=== PATIENT | male | born 1985 ===

== ENCOUNTER 2016-05-05 13:25 | Emergency (ER) | payer BC, MEDICAID ==
[2016-05-05 15:16] VITALS: BP 143/85
--- NOTE | 2016-05-05 17:02 | UC ---
Throat Pain/Nasal Aravind HPI - HPI Summary HPI Summary: FOUR DAYS OF SORE THROAT, COLD SWEATS, COUGH. FELT FEVERISH, BUT NO THERMOMETER - History of Current Complaint Chief Complaint: UCGeneralIllness Stated Complaint: SORE THROAT Time Seen by Provider: 05/05/16 15:37 Hx Obtained From: Patient Onset/Duration: Gradual Onset, Lasting Days, Still Present Severity: Mild Pain Intensity: 2 Pain Scale Used: 0-10 Numeric Cough: Nonproductive Associated Signs & Symptoms: Positive: Hoarseness, Sinus Discomfort, Fever - Allergies/Home Medications Allergies/Adverse Reactions: Allergies Allergy/AdvReac Type Severity Reaction Status Date / Time No Known Allergies Allergy Verified 01/13/15 10:59 PMH/Surg Hx/FS Hx/Imm Hx Previously Healthy: Yes Endocrine History Of: Denies: Diabetes, Thyroid Disease Cardiovascular History Of: Denies: Cardiac Disorders, Hypertension Respiratory History Of: Denies: COPD, Asthma GI/ History Of: Denies: Ulcer - Surgical History Surgical History: None - Family History Known Family History: Negative: Respiratory Disease - Social History Occupation: Employed Full-time Lives: With Family Alcohol Use: Daily Alcohol Amount: 2 BEERS A DAY Substance Use Type: None Smoking Status (MU): Never Smoked Tobacco Review of Systems Constitutional: Fever, Chills, Fatigue Skin: Negative Eyes: Negative ENT: Sore Throat, Ear Ache Respiratory: Cough Cardiovascular: Negative Gastrointestinal: Negative Genitourinary: Negative Motor: Negative Neurovascular: Negative Musculoskeletal: Negative Neurological: Negative Psychological: Negative All Other Systems Reviewed And Are Negative: Yes Physical Exam Triage Information Reviewed: Yes Appearance: Well-Appearing, No Pain Distress, Well-Nourished Vital Signs: Initial Vital Signs Temp 98.1 F 05/05/16 15:11 Pulse 74 05/05/16 15:11 Resp 16 05/05/16 15:11 BP 143/85 05/05/16 15:11 Pulse Ox 98 05/05/16 15:11 Vital Signs Reviewed: Yes Eye Exam: Normal ENT Exam: Normal ENT: Positive: Normal ENT inspection, Hearing grossly normal, Pharyngeal erythema, TMs normal, Tonsillar exudate Dental Exam: Normal Neck exam: Normal Neck: Positive: Supple, Nontender, No Lymphadenopathy Respiratory Exam: Normal Respiratory: Positive: Chest non-tender, Lungs clear, Normal breath sounds, No respiratory distress Cardiovascular Exam: Normal Cardiovascular: Positive: RRR, No Murmur, Pulses Normal, Brisk Capillary Refill Abdominal Exam: Normal Abdomen Description: Positive: Nontender, No Organomegaly Musculoskeletal Exam: Normal Musculoskeletal: Positive: Strength Intact, ROM Intact Neurological Exam: Normal Psychological Exam: Normal Psychological: Positive: Normal Response To Family Skin Exam: Normal Throat Pain/Nasal Course/Dx - Differential Dx/Diagnosis Differential Diagnosis/HQI/PQRI: Pharyngitis, Sinusitis, URI Provider Diagnoses: TONSILLITIS. UPPER RESPIRATORY INFECTION Discharge - Discharge Plan Condition: Stable Disposition: HOME Prescriptions: Benzonatate CAP* [Tessalon CAP*] 100 mg PO TID PRN #15 cap PRN Reason: Cough Patient Education Materials: Upper Respiratory Infection (ED), Tonsillitis (ED) Referrals: Cande Alonso [Primary Care Provider] -
== END 2016-05-05 16:15 | disposition home or self-care (01) ==
LOC: UCEAST 13:25
DX: J03.90 Acute tonsillitis, unspecified (principal); J06.9 Acute upper respiratory infection, unspecified
CPT/HCPCS: 87651; 99211; G0463

== ENCOUNTER 2017-04-01 17:14 | Emergency (ER) | payer MEDICAID, OTHER ==
[2017-04-01 17:24] VITALS: BP 129/66
--- NOTE | 2017-04-01 17:33 | UC ---
Throat Pain/Nasal Aravind HPI - HPI Summary HPI Summary: Pt presents with ongoing sore throat for the past 3 weeks. He mentions that he had sinus congestion/pain/pressure about 3 weeks with a sore throat. Ever since that time he has had intermittent pain when swallowing. He denies fever, chills , headache, sinus pain/pressure/congestion, earache, cough, SOB, chest pain, abdominal pain, N/V/D/C - History of Current Complaint Chief Complaint: UCRespiratory Stated Complaint: SORE THROAT Time Seen by Provider: 04/01/17 17:20 Hx Obtained From: Patient Onset/Duration: Gradual Onset Severity: Mild Pain Intensity: 4 Pain Scale Used: 0-10 Numeric - Allergies/Home Medications Allergies/Adverse Reactions: Allergies Allergy/AdvReac Type Severity Reaction Status Date / Time No Known Allergies Allergy Verified 01/13/15 10:59 PMH/Surg Hx/FS Hx/Imm Hx Previously Healthy: Yes - Surgical History Surgical History: None - Family History Known Family History: Negative: Respiratory Disease - Social History Occupation: Employed Full-time Lives: Alone Alcohol Use: Daily Alcohol Amount: 2 BEERS A DAY Substance Use Type: None Smoking Status (MU): Never Smoked Tobacco Review of Systems Constitutional: Negative Skin: Negative Eyes: Negative ENT: Sore Throat Respiratory: Negative Cardiovascular: Negative Gastrointestinal: Negative All Other Systems Reviewed And Are Negative: Yes Physical Exam Triage Information Reviewed: Yes Appearance: Well-Appearing, Well-Nourished Vital Signs: Initial Vital Signs Temp 97.8 F 04/01/17 17:22 Pulse 62 04/01/17 17:22 Resp 18 04/01/17 17:22 BP 129/66 04/01/17 17:22 Pulse Ox 100 04/01/17 17:22 Vital Signs Reviewed: Yes Eyes: Positive: Conjunctiva Clear. Negative: Conjunctiva Inflamed, Discharge ENT: Positive: Hearing grossly normal, Pharynx normal, TMs normal, Uvula midline. Negative: Pharyngeal erythema, Nasal congestion, Nasal drainage, TM bulging, TM dull, TM red, Tonsillar swelling, Tonsillar exudate, Muffled voice, Hoarse voice, Sinus tenderness Neck: Positive: Supple, Nontender, No Lymphadenopathy Respiratory: Positive: Chest non-tender, Lungs clear, Normal breath sounds, No respiratory distress, No accessory muscle use Cardiovascular: Positive: RRR, No Murmur, Pulses Normal Neurological: Positive: Alert Psychological: Positive: Age Appropriate Behavior Skin: Negative: rashes, significant lesion(s) Throat Pain/Nasal Course/Dx - Course Course Of Treatment: Suspect viral pharyngitis vs Post nasal drip. Advised to try OTC Zyrtec for post nasal drip. Rx for magic mouthwash for ongoing sore throat. If symptoms persist - fu with PCP - Differential Dx/Diagnosis Differential Diagnosis/HQI/PQRI: Epiglottitis, Influenza, Mononucleosis, Pharyngitis, Tonsillitis, URI Provider Diagnoses: Pharyngitis Discharge - Discharge Plan Condition: Stable Disposition: HOME Prescriptions: Magic Mouth Was-SANTOSH/MAAL/LIDO* 5 ml SWISH SWAL QID PRN #160 ml PRN Reason: Sore Throat Patient Education Materials: Pharyngitis (ED) Referrals: Cande Alonso [Primary Care Provider] - Additional Instructions: If you develop a fever, SOB, chest pain, new or worsening symptoms - please call your PCP or go to the ED.
== END 2017-04-01 17:57 | disposition home or self-care (01) ==
LOC: UCEAST 17:14
DX: J02.9 Acute pharyngitis, unspecified (principal)
CPT/HCPCS: 87651; 99212; G0463

== ENCOUNTER 2019-01-01 11:41 | Emergency (ER) | payer OTHER ==
[2019-01-01 11:53] VITALS: BP 147/79
--- NOTE | 2019-01-01 12:20 | UC ---
Nausea/Vomiting/Diarrhea HPI - HPI Summary HPI Summary: Patient is a 33yo male presenting with nausea, vomiting, and diarrhea since early this morning. States he ate chilli last night that he believes was and now he has food poisoning. Notes three episodes of emesis and diarrhea. Notes constant cramping pain in stomach that he rates 7/10. Denies blood in the stool or vomit. Denies fever, chills. Denies any RLQ pain. Denies any ill contacts. Patient is able to drink some fluids but does not have an appetite. - History of Current Complaint Chief Complaint: UCAbdominalPain Stated Complaint: ABD PAIN NAUSEA Time Seen by Provider: 01/01/19 11:44 Hx Obtained From: Patient Onset/Duration: Sudden Onset, Lasting Hours Severity Initially: Moderate Severity Currently: Moderate Pain Intensity: 6 Pain Scale Used: 0-10 Numeric Location: Epigastric Character: Cramping Aggravating Factor(s): Nothing Alleviating Factor(s): Vomiting, Bowel Movement - Allergies/Home Medications Allergies/Adverse Reactions: Allergies Allergy/AdvReac Type Severity Reaction Status Date / Time No Known Allergies Allergy Verified 01/01/19 11:53 Home Medications: Home Medications Ibuprofen TAB* [Advil TAB*] 200 mg PO Q6H PRN 01/01/19 [History Confirmed ] PMH/Surg Hx/FS Hx/Imm Hx - Surgical History Surgical History: None - Family History Known Family History: Positive: Non-Contributory Negative: Respiratory Disease - Social History Alcohol Use: Daily Alcohol Amount: 2-3 BEERS A DAY Substance Use Type: None Smoking Status (MU): Never Smoked Tobacco Review of Systems All Other Systems Reviewed And Are Negative: Yes Constitutional: Positive: Negative. Negative: Fever, Chills Respiratory: Positive: Negative. Negative: Shortness Of Breath, Cough Cardiovascular: Positive: Negative Gastrointestinal: Positive: Abdominal Pain, Vomiting, Diarrhea, Nausea Genitourinary: Positive: Negative Musculoskeletal: Negative: Arthralgia, Myalgia Neurological: Positive: Negative Physical Exam Triage Information Reviewed: Yes Appearance: Well-Nourished, Ill-Appearing Vital Signs: Initial Vital Signs Temp 98.2 F 01/01/19 11:49 Pulse 65 01/01/19 11:49 Resp 16 01/01/19 11:49 BP 147/79 01/01/19 11:49 Pulse Ox 100 09/17/19 11:49 Vital Signs Reviewed: Yes Eyes: Positive: Conjunctiva Clear ENT: Positive: Hearing grossly normal Neck exam: Normal Neck: Positive: Supple, Nontender, No Lymphadenopathy Respiratory Exam: Normal Respiratory: Positive: Chest non-tender, Lungs clear, Normal breath sounds, No respiratory distress, No accessory muscle use Cardiovascular Exam: Normal Cardiovascular: Positive: RRR, Pulses Normal. Negative: Tachycardia, Bradycardia Abdomen Description: Positive: Soft, Other: - mild diffuse tenderness to palpation of abdomen.. Negative: CVA Tenderness (R), CVA Tenderness (L), Distended, Guarding, McBurney's Point Tenderness Bowel Sounds: Positive: Present Neurological Exam: Normal Neurological: Positive: Alert, Muscle Tone Normal Psychological: Positive: Age Appropriate Behavior Naus/Vom/Diarrhea Course/Dx - Course Course Of Treatment: Discussed with patient stable vitals signs and lack of concern for appendicitis based on VS and PE findings. Discussed with patient to take the zofran as prescribed for nausea and vomiting. Patient instructed to get plenty of rest and fluids. Patient told to eat a bland diet, such as bread, bananas, and rice while symptoms are present. Directed to go to the emergency department if symptoms do not resolve or you develop fever, excessive vomiting, or are unable to keep fluids down. - Differential Dx/Diagnosis Provider Diagnosis: Nausea and vomiting, Diarrhea, Abdominal cramping, generalized Condition At Discharge: Stable Discharge ED - Sign-Out/Discharge Documenting (check all that apply): Patient Departure All imaging exams completed and their final reports reviewed: No Studies - Discharge Plan Condition: Stable Disposition: HOME Prescriptions: Ondansetron ODT TAB* [Zofran 4 MG Odt TAB*] 4 mg PO Q6H PRN #12 tab.odt PRN Reason: Nausea/Vomiting Patient Education Materials: Acute Nausea and Vomiting (ED) Referrals: Cande Alonso [Primary Care Provider] - If Needed Additional Instructions: As discussed, take the zofran as prescribed for your nausea and vomiting. Get plenty of rest and fluids. Eat a bland diet, such as bread, bananas, and rice while symptoms are present. If your symptoms do not resolve or you develop fever, excessive vomiting, or are unable to keep fluids down, go to the emergency department. - Billing Disposition and Condition Condition: STABLE Disposition: Home
== END 2019-01-01 12:25 | disposition home or self-care (01) ==
LOC: UCEAST 11:41
DX: R11.2 Nausea with vomiting, unspecified (principal); R19.7 Diarrhea, unspecified; R10.84 Generalized abdominal pain
CPT/HCPCS: 99212; G0463

== ENCOUNTER 2019-01-03 14:38 | Inpatient (IN) | payer OTHER ==
[2019-01-03] MEDS ORDERED: NS 0.9% 1000 ML** 1,000 ML IV ONE (15:11)
--- NOTE | 2019-01-03 15:16 | ED ---
Abdominal Pain/Male - HPI Summary HPI Summary: Patient is a 33 y/o M presenting to [facility] with complaints of RLQ and right groin pain. Sx have been present for the past three days and have worsened this morning. Pain is characterized as severe and as a pressure. He endorses N/V/D. He reports that he had nausea and four episodes of emesis three days ago. At the time, he thought he had food poisoning. Sx resolved, and he has not had N/V since. He states that he feels flushed at present. No PMHx is noted. On triage, pain is rated 7/10, nothing is noted to aggravate/alleviate Sx. Home medications and allergies are reviewed. - History of Current Complaint Chief Complaint: EDChasity Stated Complaint: EXTREME RT SIDED ABD PAIN Time Seen by Provider: 01/03/19 15:02 Hx Obtained From: Patient Onset/Duration: Lasting Days - 3, Still Present, Resolved - N/V Timing: Lasting Days - 3 Severity Currently: Severe Pain Intensity: 7 Pain Scale Used: 0-10 Numeric Location: Discrete At: RLQ, Groin - right Aggravating Factor(s): Nothing Alleviating Factor(s): Nothing Associated Signs And Symptoms: Positive: Nausea, Vomiting, Diarrhea, Other - patient feels flushed - Allergies/Home Medications Allergies/Adverse Reactions: Allergies Allergy/AdvReac Type Severity Reaction Status Date / Time No Known Allergies Allergy Verified 01/03/19 14:39 PMH/Surg Hx/FS Hx/Imm Hx Endocrine/Hematology History: Denies: Hx Diabetes, Hx Thyroid Disease Cardiovascular History: Denies: Hx Hypertension Respiratory History: Denies: Hx Asthma, Hx Chronic Obstructive Pulmonary Disease (COPD) GI History: Denies: Hx Ulcer Infectious Disease History: No Infectious Disease History: Denies: Hx Hepatitis, Hx Human Immunodeficiency Virus (HIV), History Other Infectious Disease, Traveled Outside the [place] in Last 30 Days - Family History Known Family History: Negative: Respiratory Disease - Social History Alcohol Use: Daily Alcohol Amount: 2-3 BEERS A DAY Substance Use Type: Reports: None Smoking Status (MU): Never Smoked Tobacco Review of Systems Constitutional: Other - positive - feeling flushed Positive: Abdominal Pain, Vomiting, Diarrhea, Nausea Positive: pain - right groin pain All Other Systems Reviewed And Are Negative: Yes Physical Exam - Summary Physical Exam Summary: VITAL SIGNS: Reviewed. GENERAL: Patient is a well-developed and nourished male who is lying comfortable in the stretcher. Patient is not in any acute respiratory distress. HEAD AND FACE: No signs of trauma. No ecchymosis, hematomas or skull depressions. No sinus tenderness. EYES: PERRLA, EOMI x 2, No injected conjunctiva, no nystagmus. EARS: Hearing grossly intact. Ear canals and tympanic membranes are within normal limits. MOUTH: Oropharynx within normal limits. NECK: Supple, trachea is midline, no adenopathy, no JVD, no carotid bruit, no c- spine tenderness, neck with full ROM. CHEST: Symmetric, no tenderness at palpation. LUNGS: Clear to auscultation bilaterally. No wheezing or crackles. CVS: Regular rate and rhythm, S1 and S2 present, no murmurs or gallops appreciated. ABDOMEN: Soft, RLQ tenderness with guarding and no rebound. No signs of distention. No masses palpated. Bowel sounds are decreased EXTREMITIES: FROM in all major joints, no edema, no cyanosis or clubbing. NEURO: Alert and oriented x 3. No acute neurological deficits. Speech is normal and follows commands. SKIN: Dry and warm. Triage Information Reviewed: Yes Vital Signs On Initial Exam: Initial Vitals Temp Pulse Resp BP Pulse Ox 100.0 F 101 20 119/84 100 01/03/19 14:39 01/03/19 14:39 01/03/19 14:39 01/03/19 14:39 01/03/19 14:39 Vital Signs Reviewed: Yes Diagnostics - Vital Signs Vital Signs Temp Pulse Resp BP Pulse Ox 01/03/19 14:39 100.0 F 101 20 119/84 100 - Laboratory Result Diagrams: 01/04/19 08:47 01/03/19 15:19 Lab Statement: Any lab studies that have been ordered have been reviewed, and results considered in the medical decision making process. - CT CT ABD/PEL CT Interpretation Completed By: Radiologist Summary of CT Findings: IMPRESSION: Enlarged and indistinct appendix with marked surrounding inflammatory changes. and extraluminal gas, all suggestive of ruptured appendicitis. THIS REPORT WAS REVIEWED BY DR. PRADO. Abdominal Pain Male Course/Dx - Course Assessment/Plan: Patient is a 33 y/o M presenting to [facility] with complaints of RLQ and right groin pain. Sx have been present for the past three days and have worsened this morning. Pain is characterized as severe and as a pressure. He endorses N/V/D. He reports that he had nausea and four episodes of emesis three days ago. At the time, he thought he had food poisoning. Sx resolved, and he has not had N/V since. He states that he feels flushed at present. Blood work without any significant abnormality except for sodium 134, chloride 100, glucose 118, total bili 1.2, CRP 119. Abdominal pelvic CT IMPRESSION: Enlarged and indistinct appendix with marked surrounding inflammatory changes. and extraluminal gas, all suggestive of ruptured appendicitis. I discussed the case with Dr. Miguel from surgery and she agrees to accept this patient for admission. We will start the patient on Zosyn. The patient is hemodynamically stable alert and oriented 3. - Diagnoses Provider Diagnoses: Acute appendicitis - Provider Notifications Discussed Care Of Patient With: Edita Miguel Time Discussed With Above Provider: 18:34 Instructed by Provider To: Other - Dr. Perales discussed results of CT with Dr. Prado at 1828. Patient's case was discussed with Dr. Miguel, surgery. Dr. Miguel accepts the patient for admission to her services. Discharge ED - Sign-Out/Discharge Documenting (check all that apply): Patient Departure - admit Patient Received Moderate/Deep Sedation with Procedure: No - Discharge Plan Condition: Stable Disposition: ADMITTED TO [facility] - Billing Disposition and Condition Condition: STABLE Disposition: Admitted to [facility] - Attestation Statements Document Initiated by Mode: Yes Documenting Scribe: DIEGO ALEMAN Provider For Whom Mode is Documenting (Include Credential): SANTOS PRADO MD Scribe Attestation: DIEGO Douglas, scribed for SANTOS PRADO MD on 01/04/19 at 0905. Scribe Documentation Reviewed: Yes Provider Attestation: The documentation as recorded by the DIEGO montanez accurately reflects the service I personally performed and the decisions made by me, SANTOS PRADO MD Status of Scribe Document: Viewed
[2019-01-03 15:34] LABS: Hematocrit 41 % (42-52); Hemoglobin 14.3 g/dL (14.0-18.0); Mean Corpuscular HGB Conc 35 g/dL (31-36); Mean Corpuscular Hemoglobin 31 pg (27-31); Mean Corpuscular Volume 89 fL (80-94); Mean Platelet Volume 8.3 fL (7.4-10.4); Platelet Count 193 10^3/uL (150-450); Red Blood Count 4.64 10^6 /uL (4.18-5.48); Red Cell Distribution Width 13 % (10-15); White Blood Count 10.1 10^3/uL (3.5-10.8)
[2019-01-03 15:36] LABS: ABS Lymphocytes 0.7 10^3/ul (1.0-4.8); ABS Neutrophils 8.4 10^3/ul (1.5-7.7); Eosinophil % 0.1 %; Lymphocyte % 6.6 %
[2019-01-03 15:52] LABS: Albumin 4.3 g/dL (3.2-5.2); Albumin/Globulin Ratio 1.7 (1-3); C Reactive Protein 119.17 mg/L (<8.01); Calcium 9.5 mg/dL (8.6-10.3); EGFR African American 96.8 (>60); Globulin 2.6 g/dL (2-4); Potassium 4.6 mmol/L (3.5-5.0); Total Bilirubin 1.2 mg/dL (0.2-1.0); Total Protein 6.9 g/dL (6.4-8.9)
[2019-01-03] MEDS ORDERED: Iohexol 300* (CONTRAST) 10 ML SDV IV ONE (16:26)
[2019-01-03] MEDS ORDERED: Acetaminophen SUPP* 650 MG SUPP PR ONE (18:26)
[2019-01-03] MEDS ORDERED: Piperacillin/Tazobac ADVAN(*) 3.375 GM in NS 0.9% 100 ML* 100 ML IVPB ONE (18:34)
[2019-01-03] MEDS ORDERED: Ondansetron INJ* 2 MG/ML VIAL IV PRN (20:24)
[2019-01-03] MEDS ORDERED: HYDROmorphone INJ* 0.5 MG/0.5 ML SYRINGE IV SLOW PU PRN (20:24)
[2019-01-03] MEDS ORDERED: oxyCODONE/Acetamin 5/325 MG* TAB PO PRN (20:24)
--- NOTE | 2019-01-03 21:48 | HP ---
HISTORY AND PHYSICAL: DATE OF ADMISSION: 01/03/19 SERVICE: General Surgery. ATTENDING SURGEON: Edita Miguel MD ADMISSION DIAGNOSIS: Perforated appendicitis. HISTORY OF PRESENT ILLNESS: Mr. Caba is a very pleasant and healthy 33-year- old gentleman, who presented to the emergency room with complaints of 3 days of periumbilical radiating to right lower quadrant abdominal pain. The patient states he was in his normal state of health on Monday and then the next day on Monday, he started developing severe diffuse abdominal pain as well as nausea and vomiting. He went to [facility] where he was evaluated and was told that likely it was food poisoning, as he thought that he had eaten something bad the day before. However, he was given precautions for returning to the ED and given that the next 2 days he persisted in having abdominal pain that began to radiate to the right lower quadrant as well as fevers and night sweats, he then presented to the emergency room. He states that while he has not had vomiting since Monday, he also does not have much of an appetite. Given that the pain continued to persist, he presented to the emergency room this evening. Workup has shown that he has a normal white blood cell count of 10.1 with a left shift. However, he did have a CT abdomen and pelvis that showed a perforated appendicitis with severe inflammatory change in the right lower quadrant and an indistinguishable appendix. Currently, the patient states that he has pain really just in the right lower quadrant. He rates it as 2/10, although he states it gets worse episodically and is also worsened by movement such as getting in and out of the bed. PAST MEDICAL HISTORY: None. PAST SURGICAL HISTORY: None. MEDICATIONS: None. ALLERGIES: No known drug allergies. SOCIAL HISTORY: The patient is . He works in the logging industry. He is a nonsmoker. He drinks approximately 2 to 3 beers a day. REVIEW OF SYSTEMS: Positive for flushing, abdominal pain, anorexia. PHYSICAL EXAMINATION GENERAL: He is a young man, lying in bed, in no great distress, but he appears flushed and somewhat uncomfortable. VITAL SIGNS: Temperature is 100.3, earlier in the evening it was elevated to 102; pulse is 98; O2 sat is 100% O2 on room air; blood pressure is 130/73. HEENT: Normocephalic, atraumatic. RESPIRATORY: Clear to auscultation bilaterally. CARDIOVASCULAR: Regular rate and rhythm. ABDOMEN: Soft, nondistended. Focally tender with a rebound tenderness in the right lower quadrant. All the other quadrants are nontender. EXTREMITIES: No edema. DIAGNOSTIC STUDIES/LAB DATA: Laboratory values: White blood cell count 10.1, hemoglobin 14.3, hematocrit 41, platelets are 193. Sodium is 134, potassium 4.6 , chloride is 100, CO2 of 28, BUN 17, creatinine is 1.06, glucose is 118. Total bilirubin is 1.2, lactic acid is 0.9. C-reactive protein is 119.7. AST of 17, ALT of 23, alkaline phosphatase is 58, lipase is 13. Imaging: CT abdomen and pelvis shows severe inflammatory changes seen in the region of the appendix with evidence of localized perforation. The entire inflamed region measures about 5 x 10 cm and there is probably an appendicolith measuring 9 mm. There is stranding along the ascending colon and cecal wall thickening. Impression- Enlarged and indistinct appendix with marked surrounding inflammatory changes and extraluminal gas, all suggestive of ruptured appendicitis. ASSESSMENT AND PLAN: Mr. Caba is a very pleasant 33-year-old gentleman who presented with 3 days of periumbilical radiating to right lower quadrant abdominal pain, nausea, emesis, and anorexia. When he presented to the emergency room, he was febrile to 102. However, his white blood count was normal and he had a CT scan consistent with a perforated appendicitis. I have reviewed this imaging; he does not have a distinct appendix and has severe inflammatory changes indicative of a developing phlegmon in the right lower quadrant with severe surrounding inflammation of the cecum and the terminal ileum. I have discussed the diagnosis with the patient and his . Given the amount of inflammation and no evidence of a distinct appendix, the risks will likely outweigh the benefits of surgery, given the severe inflammation. I told him that he will be admitted to the hospital for IV antibiotics and he will remain n.p.o. until his pain improves. We will continue to monitor him, and as his pain begins to improve, his diet may be advanced. I did discuss with the patient that his hospital course would be taken day by day. If he does not respond well to the antibiotics within 24 to 48 hours, he may require either a repeat CT scan to ascertain if there is a developing abscess or even undergo abdominal washout if he fails to significantly progress. He understands all of these things and is in agreement with this plan. [id number]/[facility] #: [id number] BEATRICE
[2019-01-03] MEDS: NS 0.9% 1000 ML** 1,000 ML IV SCH (22:02)
[2019-01-03] MEDS: Heparin VIAL(*) 5000 UNITS/ML VIAL (FIVE THOUSAND) SUBCUT SCH (22:03)
[2019-01-03] MEDS: Piperacillin/Tazobactam VIAL*) 3.375 GM in NS 0.9% 100 ML* 100 ML IVPB SCH (22:24)
[2019-01-04] MEDS: NS 0.9% 1000 ML** 1,000 ML IV SCH (06:09)
[2019-01-04] MEDS: Piperacillin/Tazobactam VIAL*) 3.375 GM in NS 0.9% 100 ML* 100 ML IVPB SCH ×3 (06:10→22:16)
[2019-01-04 08:57] LABS: ABS Lymphocytes 0.6 10^3/ul (1.0-4.8); ABS Neutrophils 7.9 10^3/ul (1.5-7.7); Eosinophil % 0.1 %; Hematocrit 39 % (42-52); Hemoglobin 13.4 g/dL (14.0-18.0); Lymphocyte % 6.7 %; Mean Corpuscular HGB Conc 34 g/dL (31-36); Mean Corpuscular Hemoglobin 30 pg (27-31); Mean Corpuscular Volume 89 fL (80-94); Platelet Count 168 10^3/uL (150-450); Red Blood Count 4.42 10^6 /uL (4.18-5.48); Red Cell Distribution Width 13 % (10-15); White Blood Count 9.6 10^3/uL (3.5-10.8)
[2019-01-04 09:13] LABS: Albumin 3.6 g/dL (3.2-5.2); BUN/Creatinine Ratio 14.9 (8-20); Calcium 8.6 mg/dL (8.6-10.3); EGFR African American 121.5 (>60); EGFR Non-African American 100.4 (>60); Total Protein 5.7 g/dL (6.4-8.9)
[2019-01-04 09:14] LABS: Albumin/Globulin Ratio 1.7 (1-3); Globulin 2.1 g/dL (2-4); Total Bilirubin 1.9 mg/dL (0.2-1.0)
[2019-01-04] MEDS: Heparin VIAL(*) 5000 UNITS/ML VIAL (FIVE THOUSAND) SUBCUT SCH (09:19)
--- NOTE | 2019-01-04 10:32 | PN ---
Progress Note - Progress Note Date of Service: 01/04/19 Note: Surgery Progress Note S: Patient says he feels better today. His pain feels improved. He has not needed any pain medications. He is passing flatus. He is also hungry. He is ambulating but finds it uncomfortable. O: Vital Signs: Temp Pulse Resp BP Pulse Ox 98.4 F 69 17 115/44 96 01/04/19 07:51 01/04/19 07:51 01/04/19 07:51 01/04/19 07:51 01/04/19 07:51 Vital Signs - 24 hr 01/03/19 01/03/19 01/03/19 14:39 15:12 15:13 Temperature 100.0 F Pulse Rate 101 89 91 Respiratory 20 Rate Blood Pressure 119/84 129/75 (mmHg) O2 Sat by Pulse 100 100 100 Oximetry 01/03/19 01/03/19 01/03/19 15:42 16:00 16:12 Temperature Pulse Rate 89 86 85 Respiratory Rate Blood Pressure 119/80 134/72 (mmHg) O2 Sat by Pulse 99 99 99 Oximetry 01/03/19 01/03/19 01/03/19 16:42 17:00 17:12 Temperature Pulse Rate 93 94 93 Respiratory Rate Blood Pressure 131/73 126/75 (mmHg) O2 Sat by Pulse 98 99 99 Oximetry 01/03/19 01/03/19 01/03/19 18:00 18:12 18:29 Temperature 102 F Pulse Rate 92 93 95 Respiratory Rate Blood Pressure 124/70 128/72 (mmHg) O2 Sat by Pulse 100 100 100 Oximetry 01/03/19 01/03/19 01/03/19 18:42 19:00 19:12 Temperature Pulse Rate 98 93 95 Respiratory Rate Blood Pressure 130/73 124/70 (mmHg) O2 Sat by Pulse 100 99 99 Oximetry 01/03/19 01/03/19 01/03/19 19:30 19:42 20:00 Temperature 100.3 F Pulse Rate 96 100 Respiratory Rate Blood Pressure 126/70 (mmHg) O2 Sat by Pulse 99 97 Oximetry 01/03/19 01/03/19 01/03/19 20:12 20:42 21:00 Temperature Pulse Rate 97 96 Respiratory Rate Blood Pressure 127/69 127/70 (mmHg) O2 Sat by Pulse 96 96 Oximetry 01/03/19 01/03/19 01/03/19 21:12 21:42 22:00 Temperature Pulse Rate 100 99 96 Respiratory Rate Blood Pressure 126/73 125/69 (mmHg) O2 Sat by Pulse 95 97 97 Oximetry 01/03/19 01/03/19 01/03/19 22:08 22:10 22:30 Temperature 100.5 F 100.5 F 100.5 F Pulse Rate 97 106 Respiratory 16 20 Rate Blood Pressure 127/70 129/57 (mmHg) O2 Sat by Pulse 96 97 Oximetry 01/03/19 01/04/19 01/04/19 22:40 03:00 07:51 Temperature 100.1 F 98.4 F Pulse Rate 88 69 Respiratory 20 20 17 Rate Blood Pressure 122/44 115/44 (mmHg) O2 Sat by Pulse 98 96 Oximetry Intake & Output 01/03/19 01/04/19 01/04/19 22:59 06:59 14:59 Intake Total 1100 1059 Output Total 1000 Balance 1100 59 Weight 185 lb Intake: IV Fluids 1100 959 NS (0.9%) 959 IVPB 100 ABX - ZOSYN 100 Oral 0 Output: Urine 1000 Laboratory Last Values WBC 9.6 10^3/uL (3.5-10.8) 01/04/19 08:47 RBC 4.42 10^6 /uL (4.18-5.48) 01/04/19 08:47 Hgb 13.4 g/dL (14.0-18.0) L 01/04/19 08:47 Hct 39 % (42-52) L 01/04/19 08:47 MCV 89 fL (80-94) 01/04/19 08:47 MCH 30 pg (27-31) 01/04/19 08:47 MCHC 34 g/dL (31-36) 01/04/19 08:47 RDW 13 % (10-15) 01/04/19 08:47 Plt Count 168 10^3/uL (150-450) 01/04/19 08:47 MPV 8.0 fL (7.4-10.4) 01/04/19 08:47 Neut % (Auto) 83.0 % 01/04/19 08:47 Lymph % (Auto) 6.7 % 01/04/19 08:47 [place] % (Auto) 10.0 % 01/04/19 08:47 Eos % (Auto) 0.1 % 01/04/19 08:47 Baso % (Auto) 0.2 % 01/04/19 08:47 Absolute Neuts (auto) 7.9 10^3/ul (1.5-7.7) H 01/04/19 08:47 Absolute Lymphs (auto) 0.6 10^3/ul (1.0-4.8) L 01/04/19 08:47 Absolute Monos (auto) 1.0 10^3/ul (0-0.8) H 01/04/19 08:47 Absolute Eos (auto) 0.0 10^3/ul (0-0.6) 01/04/19 08:47 Absolute Basos (auto) 0.0 10^3/ul (0-0.2) 01/04/19 08:47 Absolute Nucleated RBC 0.0 10^3/ul 01/04/19 08:47 Nucleated RBC % 0.0 01/04/19 08:47 Sodium 134 mmol/L (135-145) L 01/04/19 08:47 Potassium 4.0 mmol/L (3.5-5.0) 01/04/19 08:47 Chloride 103 mmol/L (101-111) 01/04/19 08:47 Carbon Dioxide 25 mmol/L (22-32) 01/04/19 08:47 Anion Gap 6 mmol/L (2-11) 01/04/19 08:47 BUN 13 mg/dL (6-24) 01/04/19 08:47 Creatinine 0.87 mg/dL (0.67-1.17) 01/04/19 08:47 Est GFR ( Amer) 121.5 (>60) 01/04/19 08:47 Est GFR (Non-Af Amer) 100.4 (>60) 01/04/19 08:47 BUN/Creatinine Ratio 14.9 (8-20) 01/04/19 08:47 Glucose 108 mg/dL (70-100) H 01/04/19 08:47 Lactic Acid 0.5 mmol/L (0.5-2.0) 01/03/19 20:01 Calcium 8.6 mg/dL (8.6-10.3) 01/04/19 08:47 Total Bilirubin 1.90 mg/dL (0.2-1.0) H 01/04/19 08:47 AST 16 U/L (13-39) 01/04/19 08:47 ALT 25 U/L (7-52) 01/04/19 08:47 Alkaline Phosphatase 68 U/L (34-104) 01/04/19 08:47 C-Reactive Protein 119.17 mg/L (<8.01) H 01/03/19 15:19 Total Protein 5.7 g/dL (6.4-8.9) L 01/04/19 08:47 Albumin 3.6 g/dL (3.2-5.2) 01/04/19 08:47 Globulin 2.1 g/dL (2-4) 01/04/19 08:47 Albumin/Globulin Ratio 1.7 (1-3) 01/04/19 08:47 Lipase 13 U/L (11.0-82.0) 01/03/19 15:19 Physical exam: Abdomen- soft, non-distended, tender in RLQ with rebound; no tenderness in other quadrants A/P: 33 M with perforated appendicitis and phelgmon. - Continue IV abx with Zosyn - Will advance to [facility] - Continue IV fluids, HSQ - Discussed with patient again that if he fails to significantly improve we may perform another CT abdomen to assess if an abscess develops or take him to OR for a washout. He appears to be improving, but has only been in IV abx for less than 24 hours.
--- NOTE | 2019-01-04 13:31 | PN ---
Progress Note - Progress Note Date of Service: 01/04/19 SOAP: Subjective: []appendicitis Objective: []fever 102+ last elissa abdomen-tender rlq, guarding Assessment: []appendicitis, ruptured Plan: []I was asked by Dr Miguel to assume care of the patient, I reviewed the chart, ct scan, and examined the patient. I had a long discussion with him and his . We discussed the option of laparoscopic appendectomy with risks including but not limited to bleeding, infection, injury to bowel/other intra abdominal contents, possible open appendectomy. We discussed current conservative treatment with antibiotics, the likelyhood of needing further intervention such as drainage, operation in the next few days, or interval appendectomy at some point in the future, possible length of hospital stay and antibiotic course. After a thorough discussion and time to discuss with his alone he has decided to proceed with laparoscopic appendectomy.
[2019-01-04] MEDS ORDERED: Bupivacaine 0.5%* 50 ML MDV VIAL ONE (13:59)
[2019-01-04] MEDS ORDERED: Buffered Lidocaine 1% SYRIN* 1 ML/SYRINGE INTRADERM ONE (14:55)
[2019-01-04] MEDS ORDERED: Famotidine IV* 10 MG/ML 2 ML (20 mg) ONE (14:56)
[2019-01-04] MEDS ORDERED: Lactated Ringers 1000 ML Bag* 1,000 ML IV SCH (15:00)
[2019-01-04] MEDS ORDERED: Midazolam* 1 MG/ML 2 ML VIAL (2 MG) ONE (15:08)
[2019-01-04] MEDS ORDERED: fentaNYL* 50 MCG/ML 2 ML VIAL (100 MCG VIAL) ONE ×3 (15:08→17:10)
[2019-01-04] MEDS ORDERED: Cisatracurium* 2 MG/ML MDV 5 ML ONE (15:09)
[2019-01-04] MEDS ORDERED: Dexamethasone IV* 4 MG/ML 1 ML (4 MG) ONE (15:29)
[2019-01-04] MEDS ORDERED: Succinylcholine* 20 MG/ML 10 ML VIAL ONE (15:29)
[2019-01-04] MEDS ORDERED: Propofol* 10 MG/ML 20 ML BTL ONE ×2 (15:29→15:52)
[2019-01-04] MEDS ORDERED: Naloxone* 0.4 MG/ML 1 ML VIAL IV PRN (15:58)
[2019-01-04] MEDS ORDERED: diPHENhydraMINE IV* 50 MG/ML 1 ml VIAL (BENADRYL) IV PRN (15:58)
[2019-01-04] MEDS ORDERED: DiMENhydriNATE IV* 50 MG/ML VIAL IV PUSH PRN (15:58)
[2019-01-04] MEDS ORDERED: Acetaminophen IV 1GM/100ML * 100 ML ONE (16:02)
[2019-01-04] MEDS ORDERED: Lidocaine 2% PF * 5 ML VIAL ONE (16:02)
[2019-01-04] MEDS ORDERED: Ondansetron INJ* 2 MG/ML VIAL ONE (16:21)
[2019-01-04] MEDS ORDERED: Ketorolac INJ* 30 MG/ML 1 ML VIAL ONE (16:21)
[2019-01-04] MEDS ORDERED: Bacitracin OINTMENT* 0.5% 0.5 oz TUBE ONE (16:34)
--- NOTE | 2019-01-04 16:45 | BRIEFOPN ---
Brief Operative/Procedure Note - Operation Details Pre-Op Diagnosis: acute appendicitis, perforated Post-Op Diagnosis: same Procedures: laparoscopic appendectomy Surgeon(s)/Proceduralists: Vicente. Assist: PARVIZ Odom Anesthesia: GET Estimated Blood Loss: < 50 ml; Fluids: 1000 ml RL Findings: as above Specimen(s)/Culture(s) Description: appendix Complications: none. [address]
[2019-01-04] MEDS: fentaNYL* 50 MCG/ML 2 ML VIAL (100 MCG VIAL) IV PRN ×2 (17:12→17:32)
[2019-01-04] MEDS ORDERED: Acetaminophen TAB* 325 MG PO PRN (18:49)
[2019-01-04] MEDS: Lactated Ringers 1000 ML Bag* 1,000 ML IV SCH (18:53)
[2019-01-04] MEDS: Ketorolac INJ* 30 MG/ML 1 ML VIAL IV PRN (19:33)
--- NOTE | 2019-01-04 22:49 | OP ---
AMENDED REPORT NOW INCLUDES DATE OF OPERATION DATE OF OPERATION: 01/04/19 - ROOM #352 DATE OF : 83 SURGEON: Lalo Zhang MD. [employer] LAB[employer]ER: PARVIZ Deal. PRE-OP DIAGNOSIS: Perforated appendicitis. POST-OP DIAGNOSIS: Perforated appendicitis. OPERATIVE PROCEDURE: Laparoscopic appendectomy. INDICATIONS: Perforated appendicitis. Risks included, but not limited to, bleeding, infection, injury to intraabdominal contents including the bowel among others explained to the patient, who seemed to understand and agreed to the procedure, and all questions were answered. DESCRIPTION OF PROCEDURE: The patient was taken to the operating room and placed supine. Preoperative antibiotics had been given. After the successful induction of general endotracheal anesthesia, the abdomen was prepped and draped in sterile fashion. A time-out was performed indicating correct patient , correct procedure. A left lower quadrant 5-mm trocar was placed under direct visualization of the camera with a bladeless Optiview trocar. Pneumoperitoneum was achieved at 15 mmHg. Camera was placed in the abdomen. The abdomen was scanned. There was no obvious injury from trocar placement. A 12-mm infraumbilical and 5-mm suprapubic trocars were placed respectively under direct visualization of the camera. The patient was placed in the Trendelenburg position, tilted slightly towards his left. The cecum was gently mobilized revealing an acutely inflamed appendix. The base was isolated and divided with a stapler. The appendix traveled along the pericolic gutter going back up the ascending colon and was obviously inflamed and necrotic at the tip where the perforation was noted. A large fecalith was noted, which appear to be in the mid body of the appendix. Some fibrinous exudate was noted in the cavity surrounding the perforation. Any purulence and perforated fluid was aspirated. The appendix was then completely removed using a staple load x2 along the mesoappendix traveling towards the tip. The appendix was placed into an Endobag and removed from the umbilical port site. This cavity was then irrigated and aspirated dry. EBL minimal. Hemostasis was intact. The abdomen was scanned. There was no obvious injury noted or any other abnormalities. Drain was brought through the umbilical site and placed on the right pericolic gutter where the appendix was and again was brought out through the suprapubic site and sutured in place with a 2-0 silk stitch. The patient was placed back in the flat position. The omentum was then placed over the cecum and the drain. The peritoneum was completely aspirated of the abdomen. The trocars were removed. The midline fascia at the umbilicus was closed with a 0 Vicryl stitch. The wounds were irrigated and the skin was closed with Monocryl. Glue was applied to the skin. The patient tolerated the procedure well. He was extubated and taken to Recovery in stable condition. [id number] #: [id number] BEATRICE
[2019-01-05] MEDS: Ketorolac INJ* 30 MG/ML 1 ML VIAL IV PRN ×2 (02:14→09:00)
[2019-01-05] MEDS: Lactated Ringers 1000 ML Bag* 1,000 ML IV SCH (03:25)
[2019-01-05 05:11] LABS: ABS Lymphocytes 0.5 10^3/ul (1.0-4.8); ABS Monocytes 0.8 10^3/ul (0-0.8); ABS Neutrophils 7.1 10^3/ul (1.5-7.7); Eosinophil % 0.1 %; Hematocrit 36 % (42-52); Hemoglobin 12.4 g/dL (14.0-18.0); Lymphocyte % 5.7 %; Mean Corpuscular HGB Conc 34 g/dL (31-36); Mean Corpuscular Hemoglobin 30 pg (27-31); Mean Corpuscular Volume 89 fL (80-94); Mean Platelet Volume 8.1 fL (7.4-10.4); Platelet Count 172 10^3/uL (150-450); Red Blood Count 4.08 10^6 /uL (4.18-5.48); Red Cell Distribution Width 13 % (10-15); White Blood Count 8.4 10^3/uL (3.5-10.8)
[2019-01-05 05:26] LABS: Albumin 3.4 g/dL (3.2-5.2); Albumin/Globulin Ratio 1.6 (1-3); BUN/Creatinine Ratio 14.3 (8-20); Calcium 8.5 mg/dL (8.6-10.3); EGFR African American 105.9 (>60); EGFR Non-African American 87.6 (>60); Globulin 2.1 g/dL (2-4); Potassium 4.4 mmol/L (3.5-5.0); Total Protein 5.5 g/dL (6.4-8.9)
[2019-01-05] MEDS: Piperacillin/Tazobactam VIAL*) 3.375 GM in NS 0.9% 100 ML* 100 ML IVPB SCH (06:01)
[2019-01-05] MEDS ORDERED: Influenza VAC *QUAD* 2019-20* 0.5 ML SYRINGE IM ONE (09:00)
--- NOTE | 2019-01-05 10:32 | PN ---
Progress Note - Progress Note Date of Service: 01/05/19 SOAP: Subjective: []"feel great since recovery room" tolerating regular diet, bm this am Objective: [] Laboratory Last Values WBC 8.4 10^3/uL (3.5-10.8) 01/05/19 04:54 RBC 4.08 10^6 /uL (4.18-5.48) L 01/05/19 04:54 Hgb 12.4 g/dL (14.0-18.0) L 01/05/19 04:54 Hct 36 % (42-52) L 01/05/19 04:54 MCV 89 fL (80-94) 01/05/19 04:54 MCH 30 pg (27-31) 01/05/19 04:54 MCHC 34 g/dL (31-36) 01/05/19 04:54 RDW 13 % (10-15) 01/05/19 04:54 Plt Count 172 10^3/uL (150-450) 01/05/19 04:54 MPV 8.1 fL (7.4-10.4) 01/05/19 04:54 Neut % (Auto) 84.4 % 01/05/19 04:54 Lymph % (Auto) 5.7 % 01/05/19 04:54 [place] % (Auto) 9.7 % 01/05/19 04:54 Eos % (Auto) 0.1 % 01/05/19 04:54 Baso % (Auto) 0.1 % 01/05/19 04:54 Absolute Neuts (auto) 7.1 10^3/ul (1.5-7.7) 01/05/19 04:54 Absolute Lymphs (auto) 0.5 10^3/ul (1.0-4.8) L 01/05/19 04:54 Absolute Monos (auto) 0.8 10^3/ul (0-0.8) 01/05/19 04:54 Absolute Eos (auto) 0.0 10^3/ul (0-0.6) 01/05/19 04:54 Absolute Basos (auto) 0.0 10^3/ul (0-0.2) 01/05/19 04:54 Absolute Nucleated RBC 0.0 10^3/ul 01/05/19 04:54 Nucleated RBC % 0.0 01/05/19 04:54 Sodium 135 mmol/L (135-145) 01/05/19 04:54 Potassium 4.4 mmol/L (3.5-5.0) 01/05/19 04:54 Chloride 103 mmol/L (101-111) 01/05/19 04:54 Carbon Dioxide 29 mmol/L (22-32) 01/05/19 04:54 Anion Gap 3 mmol/L (2-11) 01/05/19 04:54 BUN 14 mg/dL (6-24) 01/05/19 04:54 Creatinine 0.98 mg/dL (0.67-1.17) 01/05/19 04:54 Est GFR ( Amer) 105.9 (>60) 01/05/19 04:54 Est GFR (Non-Af Amer) 87.6 (>60) 01/05/19 04:54 BUN/Creatinine Ratio 14.3 (8-20) 01/05/19 04:54 Glucose 151 mg/dL (70-100) H 01/05/19 04:54 Lactic Acid 0.5 mmol/L (0.5-2.0) 01/03/19 20:01 Calcium 8.5 mg/dL (8.6-10.3) L 01/05/19 04:54 Total Bilirubin 1.00 mg/dL (0.2-1.0) 01/05/19 04:54 AST 23 U/L (13-39) 01/05/19 04:54 ALT 33 U/L (7-52) 01/05/19 04:54 Alkaline Phosphatase 77 U/L (34-104) 01/05/19 04:54 C-Reactive Protein 119.17 mg/L (<8.01) H 01/03/19 15:19 Total Protein 5.5 g/dL (6.4-8.9) L 01/05/19 04:54 Albumin 3.4 g/dL (3.2-5.2) 01/05/19 04:54 Globulin 2.1 g/dL (2-4) 01/05/19 04:54 Albumin/Globulin Ratio 1.6 (1-3) 01/05/19 04:54 Lipase 13 U/L (11.0-82.0) 01/03/19 15:19 Temp Pulse Resp BP Pulse Ox 98.3 F 67 17 105/56 98 01/05/19 07:42 01/05/19 07:42 01/05/19 07:42 01/05/19 07:42 01/05/19 07:42 incisions cdi, drain functioning well Assessment: [] stable Plan: []dc home on po abx, fu office
[2019-01-05 11:27] VITALS: BP 118/70
[2019-01-05] MEDS ORDERED: metroNIDAZOLE TAB* 250 MG PO SCH (14:00)
[2019-01-05] MEDS ORDERED: Ciprofloxacin TAB* 500 MG PO SCH (14:00)
--- NOTE | 2019-02-07 12:36 | DS ---
DISCHARGE SUMMARY: DATE OF ADMISSION: 01/03/[address] Edita Miguel. DATE OF DISCHARGE: 01/05/19 PROCEDURE PERFORMED: Laparoscopic appendectomy. DISCHARGE DIAGNOSIS: Perforated appendicitis. REASON FOR ADMISSION: Perforated appendicitis. ASSESSMENT: The patient's condition at the time of discharge: The patient is in excellent condition at the time of discharge status post laparoscopic appendectomy for perforated appendicitis. Good pain control, tolerating a diet. Afebrile. Vital signs stable. PERTINENT PHYSICAL FINDINGS: Abdomen soft, nontender. Incision is clean, dry and intact at the time of discharge. PERTINENT LABORATORY FINDINGS: Admitting white blood cell count 10.1 with 8.4% neutrophils. Discharge white blood cell count 8.4 with 7.1 absolute neutrophils. PROCEDURE PERFORMED: Laparoscopic appendectomy. TREATMENT RENDERED: Admission, IV antibiotics and laparoscopic appendectomy. HOSPITAL COURSE: The patient was admitted by Dr. Miguel on 01/03/19, placed on IV antibiotics, taken to the operating room on 01/04/19, by Dr. Zhang for laparoscopic appendectomy. Discharged on 01/05/19. Tolerating a diet. Excellent pain control. Stable for discharge to home. CONDITION AND DISPOSITION: Stable condition. Disposition: Discharged to home with plans to follow up in the office. DISCHARGE INSTRUCTIONS: General diet. Normal activity as tolerated. Tylenol and Motrin for pain. Follow up in the office in 1 to 2 weeks. [id number]/[facility] #: [id number] MTDD
== END 2019-01-05 13:30 | disposition home or self-care (01) | DRG 225 ==
LOC: ED 14:38 → SSU 20:24
PROVIDERS: ADMIT Surgery; ATTEND Surgery
PROC: 0DTJ4ZZ Resection of Appendix, Percutaneous Endoscopic Approach (ICD-10-PCS; principal; 2019-01-04 15:30)
DX: K35.33 Acute appendicitis with perforation, localized peritonitis, and gangrene, with abscess (principal); K38.1 Appendicular concretions; Z72.89 Other problems related to lifestyle; Z23 Encounter for immunization
CPT/HCPCS: 36415; 74177; 80053; 83605; 83690; 85025; 86140; 88304; 90686; 99284; A9270-GY; C1776; J0330; J1100; J1644; J1885; J2250; J2405; J2543; J2704; J3010; J3490; Q9967

== ENCOUNTER 2019-01-08 11:26 | Emergency (ER) | payer OTHER ==
[2019-01-08 11:59] LABS: ABS Eosinophils 0.2 10^3/ul (0-0.6); ABS Lymphocytes 1.3 10^3/ul (1.0-4.8); ABS Monocytes 0.5 10^3/ul (0-0.8); ABS Neutrophils 3.3 10^3/ul (1.5-7.7); Eosinophil % 3.6 %; Hematocrit 39 % (42-52); Hemoglobin 13.3 g/dL (14.0-18.0); Lymphocyte % 23.9 %; Mean Corpuscular HGB Conc 34 g/dL (31-36); Mean Corpuscular Hemoglobin 30 pg (27-31); Mean Corpuscular Volume 89 fL (80-94); Mean Platelet Volume 7.2 fL (7.4-10.4); Platelet Count 306 10^3/uL (150-450); Red Cell Distribution Width 13 % (10-15); White Blood Count 5.3 10^3/uL (3.5-10.8)
--- NOTE | 2019-01-08 12:09 | ED ---
Shortness of Breath - HPI Summary HPI Summary: This patient is a 33 year old M [facility] by with a chief complaint of SOB since 01/04/19. Patient states that he has been experiencing SOB since his appendectomy for his perforated appendix. Patient states that he has also been experiencing calf tenderness which is a new symptom as of today 01/08/19. Patient states that he had a follow up with his surgeon Dr. Zhang and explained his calf tenderness. Dr. Zhang recommended that patient should come to the ED regarding his concern for a blood clot. The patient rates the pain 2/10 in severity. Symptoms aggravated by nothing. Symptoms alleviated by nothing. Patient reports calf tenderness and SOB. Patient denies CP, fever and abdominal pain. Patient denies PMHx of blood clots. Patient denies tobacco use and substance abuse. Patient reports EtOH use as daily. Medications reviewed. Allergies noted. Allergies Allergy/AdvReac Type Severity Reaction Status Date / Time No Known Allergies Allergy Verified 01/03/19 14:39 Home Medications Medication Instructions Recorded Confirmed Type Ciprofloxacin TAB* [Cipro 500 MG 500 mg PO BID #14 tab 01/05/19 01/08/19 Rx TAB*] metroNIDAZOLE TAB* [Flagyl 250 mg 500 mg PO TID #20 tab 01/05/19 01/08/19 Rx TAB*] Multivitamins/Minerals TAB* 1 tab PO DAILY 01/08/19 01/08/19 History [Theragran/minerals TAB*] - History of Current Complaint Chief Complaint: EDGeneral Time Seen by Provider: 01/08/19 11:42 Hx Obtained From: Patient, Family/Security Monitor - Onset/Duration: Lasting Days - 01/04/19 Timing: Constant Current Severity: Mild Dyspnea At: Exertion Aggravating Factors: Nothing Alleviating Factors: Nothing Associated Signs & Symptoms: Calf Pain/Swelling - Allergy/Home Medications Allergies/Adverse Reactions: Allergies Allergy/AdvReac Type Severity Reaction Status Date / Time No Known Allergies Allergy Verified 01/03/19 14:39 Home Medications: Home Medications Multivitamins/Minerals TAB* [Theragran/minerals TAB*] 1 tab PO DAILY 01/08/19 [ History Confirmed 01/08/19] PMH/Surg Hx/FS Hx/Imm Hx Endocrine/Hematology History: Denies: Hx Diabetes, Hx Thyroid Disease Cardiovascular History: Denies: Hx Hypertension Respiratory History: Denies: Hx Asthma, Hx Chronic Obstructive Pulmonary Disease (COPD) GI History: Denies: Hx Ulcer Musculoskeletal History: Reports: Hx Arthritis Sensory History: Denies: Hx Contacts or Glasses, Hx Hearing Aid Opthamlomology History: Denies: Hx Contacts or Glasses Infectious Disease History: No Infectious Disease History: Denies: Hx Hepatitis, Hx Human Immunodeficiency Virus (HIV), History Other Infectious Disease, Traveled Outside the [place] in Last 30 Days - Family History Known Family History: Positive: Non-Contributory Negative: Respiratory Disease - Social History Alcohol Use: Daily Alcohol Amount: 2-3 BEERS A DAY Hx Substance Use: No Substance Use Type: Reports: None Hx Tobacco Use: No Smoking Status (MU): Never Smoked Tobacco Review of Systems Negative: Fever Negative: Chest Pain Positive: Shortness Of Breath Negative: Abdominal Pain Musculoskeletal: Other - tenderness bilaterally in calves Negative: Edema All Other Systems Reviewed And Are Negative: Yes Physical Exam - Summary Physical Exam Summary: Constitutional: Well-developed, Well-nourished, Alert. (-) Distressed Skin: Warm, Dry HENT: Normocephalic; Atraumatic Eyes: Conjunctiva normal Neck: Musculoskeletal ROM normal neck. (-) JVD, (-) Stridor, (-) Tracheal deviation Cardio: Rhythm regular, rate normal, Heart sounds normal; Intact distal pulses; The pedal pulses are 2+ and symmetric. Radial pulses are 2+ and symmetric. (-) Murmur Pulmonary/Chest wall: Effort normal. (-) Respiratory distress, (-) Wheezes, (-) Rales Abd: Soft, (-) tenderness, (-) Distension, (-) Guarding, (-) Rebound, well appearing surgical sight. Musculoskeletal: (-) Edema, No venous cords bilateral in calves, dorsiflex with tenderness in lower extremities. Lymph: (-) Cervical adenopathy Neuro: Alert, Oriented x3 Psych: Mood and affect Normal Triage Information Reviewed: Yes Vital Signs On Initial Exam: Initial Vitals Temp Pulse Resp BP Pulse Ox 97.9 F 56 17 132/85 100 01/08/19 11:28 01/08/19 11:28 01/08/19 11:28 01/08/19 11:28 01/08/19 11:28 Vital Signs Reviewed: Yes Diagnostics - Vital Signs Vital Signs Temp Pulse Resp BP Pulse Ox 01/08/19 11:28 97.9 F 56 17 132/85 100 - Laboratory Lab Results: Lab Results 01/08/19 Range/Units 11:47 WBC 5.3 (3.5-10.8) 10^3/uL RBC 4.40 (4.18-5.48) 10^6 /uL Hgb 13.3 L (14.0-18.0) g/dL Hct 39 L (42-52) % MCV 89 (80-94) fL MCH 30 (27-31) pg MCHC 34 (31-36) g/dL RDW 13 (10-15) % Plt Count 306 (150-450) 10^3/uL MPV 7.2 L (7.4-10.4) fL Neut % (Auto) 61.8 % Lymph % (Auto) 23.9 % [place] % (Auto) 10.2 % Eos % (Auto) 3.6 % Baso % (Auto) 0.5 % Absolute Neuts (auto) 3.3 (1.5-7.7) 10^3/ul Absolute Lymphs (auto) 1.3 (1.0-4.8) 10^3/ul Absolute Monos (auto) 0.5 (0-0.8) 10^3/ul Absolute Eos (auto) 0.2 (0-0.6) 10^3/ul Absolute Basos (auto) 0.0 (0-0.2) 10^3/ul Absolute Nucleated RBC 0.0 10^3/ul Nucleated RBC % 0.0 Result Diagrams: 01/08/19 11:47 01/08/19 11:47 Lab Statement: Any lab studies that have been ordered have been reviewed, and results considered in the medical decision making process. - Radiology Venous Dopler Study Radiology Interpretation Completed By: Radiologist Summary of Radiographic Findings: Venous Dopler Study reveals, per radiologist, IMPRESSION: NO RIGHT LOWER EXTREMITY DEEP VEIN THROMBOSIS. NO LEFT LOWER EXTREMITY DEEP VEIN THROMBOSIS. ED Physician has reviewed this report. - CT CHest/Thorax CTA CT Interpretation Completed By: Radiologist Summary of CT Findings: Chest/Thorax CTA reveals, per radiologist, IMPRESSION: 1. No pulmonary embolus is identified. 2. Clear lungs. ED Physician has reviewed this report. - EKG 1210 Cardiac Rate: Bradycardia - 50 bpm EKG Rhythm: Sinus Bradycardia Ectopy: None EKG Comparison: Other - no prior comparison Summary of EKG Findings: EKG reveals sinus bradycardia at 50 bpm with t-waves at V3 with no noted abnormalities. No prior EKG to compare. Course/Dx - Course Course Of Treatment: Patient is here with bilateral calf pain and shortness of breath one to surgery. Patient had motor before which is grossly unremarkable. Patient had negative bilateral lower extremity ultrasound for DVT. Patient negative CTA for PE. Patient will follow-up with his surgeon. - Diagnoses Provider Diagnoses: Calf tenderness, SOB (shortness of breath) - Physician Notifications Discussed Care of Patient With: Lalo Zhang - Surgery Time Discussed With Above Provider: 13:30 Instructed by Provider To: Other - Dr. Lucero discussed patients care with Dr. Zhang and he agrees based on patients reports he should be discharged and will see patient back in his office in 1-3 days. Discharge ED - Sign-Out/Discharge Documenting (check all that apply): Patient Departure - discharge Patient Received Moderate/Deep Sedation with Procedure: No - Discharge Plan Condition: Stable Disposition: HOME Patient Education Materials: Shortness of Breath (ED) Referrals: Lalo Zhang MD [Medical Doctor] - 3 Days Additional Instructions: PLEASE RETURN TO EMERGENCY DEPARTMENT FOR ANY NEW OR WORSENING SYMPTOMS. FOLLOW UP WITH DR. ZHANG IN 1-3 DAYS - Billing Disposition and Condition Condition: STABLE Disposition: Home - Attestation Statements Document Initiated by Mode: Yes Documenting Scribe: Eveline Prescott Provider For Whom Mode is Documenting (Include Credential): Dr. Jamison Lucero MD Scribe Attestation: Eveline Douglas scribed for Dr. Jamison Lucero MD on 01/08/19 at 1907. Scribe Documentation Reviewed: Yes Provider Attestation: The documentation as recorded by the Eveline montanez accurately reflects the service I personally performed and the decisions made by me, Dr. Jamison Lucero MD Status of Scribe Document: Viewed
[2019-01-08 12:15] LABS: Albumin 3.9 g/dL (3.2-5.2); Albumin/Globulin Ratio 1.3 (1-3); BUN/Creatinine Ratio 21.4 (8-20); Calcium 9.4 mg/dL (8.6-10.3); EGFR African American 126.6 (>60); EGFR Non-African American 104.6 (>60); Globulin 2.9 g/dL (2-4); Potassium 4.5 mmol/L (3.5-5.0); Total Bilirubin 0.4 mg/dL (0.2-1.0); Total Protein 6.8 g/dL (6.4-8.9)
[2019-01-08 12:26] LABS: Activated Partial Thrombo Time 39.9 seconds (26.0-38.0); INR 1.14 (0.82-1.09)
[2019-01-08] MEDS ORDERED: Iohexol 350* (CONTRAST) 500 ML MDV IV ONE (12:32)
[2019-01-08 12:48] VITALS: BP 118/71
== END 2019-01-08 13:40 | disposition home or self-care (01) ==
LOC: ED 11:26
DX: R06.02 Shortness of breath (principal); M79.661 Pain in right lower leg; M79.662 Pain in left lower leg
CPT/HCPCS: 36415; 71275; 80053; 85025; 85610; 85730; 93005; 93970; 99282; Q9967